=== PATIENT | female | born 1935 | race American Indian/Alaskan Native ===

== ENCOUNTER 2023-08-23 17:21 | Emergency (ER) | payer MEDICARE, MEDICAID ==
[~2023-08-23] VITALS: Ht 165.1 cm; Wt 54.0 kg
[2023-08-23 17:27] VITALS: TEMP 98.3; O2SAT 97
[2023-08-23 18:26] LABS: CLARITY URINE CLEAR (CLEAR); COLOR URINE YELLOW (YELLOW); GLUCOSE URINE NEGATIVE (NEGATIVE); KETONES URINE NEGATIVE (NEGATIVE); LEUKOCYTE ESTERASE URINE NEGATIVE (NEGATIVE); NITRITE URINE NEGATIVE (NEGATIVE); OCCULT BLOOD URINE NEGATIVE (NEGATIVE); PROTEIN URINE NEGATIVE (NEGATIVE); UROBILINOGEN URINE 0.2 E.U./dL (0.2-1.0)
[2023-08-23] MEDS: IBUPROFEN 600MG TABLET PO ONE (20:21)
[2023-08-23] MEDS: GABAPENTIN 400MG CAPSULE PO ONE (20:21)
[2023-08-23] MEDS: PREDNISONE 20MG TABLET PO ONE (20:21)
[2023-08-23] MEDS: ACETAMINOPHEN 325MG TABLET PO ONE (20:22)
[2023-08-23] MEDS ORDERED: GABA-534 MT (22:55)
[2023-08-23] MEDS ORDERED: TOPUD MT (22:55)
[2023-08-23] MEDS ORDERED: IBUP-1523 MT (22:55)
[2023-08-23 23:48] VITALS: BP 138/98; PULSE 80; RESP 18
== END 2023-08-23 23:49 | disposition home or self-care (01) ==
LOC: ER 17:21
DX: M54.50 Low back pain, unspecified (principal); E11.9 Type 2 diabetes mellitus without complications; I10 Essential (primary) hypertension
CPT/HCPCS: 99284; 81003; 72100; J7512

== ENCOUNTER 2024-11-05 15:09 | Emergency (ER) | payer MEDICARE, MEDICAID ==
[~2024-11-05] VITALS: Ht 157.5 cm; Wt 77.0 kg
[~2024-11-05 15:09] MED LIST: GABA-534 MT; IBUP-1523 MT; TOPUD MT
[2024-11-05 15:12] VITALS: O2SAT 98
[2024-11-05] MEDS: ACETAMINOPHEN 325MG TABLET PO ONE (16:22)
[2024-11-05 17:32] VITALS: BP 190/95; PULSE 97; RESP 16; TEMP 37; O2SAT 100
== END 2024-11-05 17:33 | disposition home or self-care (01) ==
LOC: ER 15:09
DX: S42.209A Unspecified fracture of upper end of unspecified humerus, initial encounter for closed fracture (principal); E11.9 Type 2 diabetes mellitus without complications; E78.00 Pure hypercholesterolemia, unspecified; I10 Essential (primary) hypertension; W01.0XXA Fall on same level from slipping, tripping and stumbling without subsequent striking against object, initial encounter; Y93.89 Activity, other specified; Y92.89 Other specified places as the place of occurrence of the external cause; Y99.8 Other external cause status
CPT/HCPCS: 73060; 99283